=== PATIENT | male | born 1995 | race American Indian/Alaskan Native ===

== ENCOUNTER 2017-10-08 21:20 | Emergency (ER) | payer OTHER ==
[~2017-10-08] VITALS: Ht 170.2 cm; Wt 74.8 kg
[~2017-10-08 21:20] MED LIST: SEPTRA DS TABL1 EACH PO; TRAMADOL HCL50 MG PO; TYLENOL WITH C1 EACH PO
--- NOTE | 2017-10-09 07:58 | EKG ---
[facility] [address] [facility] [place], [place] [address] Signed Sinus bradycardia Otherwise normal ECG No previous ECGs available Confirmed by LATONIA NORTON MD ([id number]) on 10/09/2017 7:57:47 AM Electronically Signed By: LATONIA NORTON MD 10/09/17 0758 PATIENT NAME: CASE,DEE Kapoor Electrocardiogram DATE OF : [birth year] PHYSICIAN: LATONIA NORTON MD REPORT #: [id number] REPORT IS CONFIDENTIAL AND NOT TO BE RELEASED WITHOUT AUTHORIZATION
== END 2017-10-08 22:53 | disposition home or self-care (01) ==
LOC: ED 21:20
DX: K21.9 Gastro-esophageal reflux disease without esophagitis (principal); R07.2 Precordial pain
CPT/HCPCS: 71045; 80053; 84484; 85025; 93005; 93010; 99284

== ENCOUNTER 2024-09-13 03:22 | Emergency (ER) | payer OTHER ==
[~2024-09-13] VITALS: Ht 170.2 cm; Wt 81.0 kg
--- OUTSIDE RECORDS SUMMARY | 2024-09-13 03:29 | XMS ---
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 Hiral has no Care Guidelines for this patient. Carrie VISIT COUNT (12 MO.) 1 DONNA Denson M.C. TOTAL 2 NOTE: Visits indicate total known visits. ED/C VISIT TRACKING (12 MO.) 09/13/2024 03:23 DONNA Jasso OR TYPE: Emergency COMPLAINT: - POSS COLLERBONE INJURY 09/03/2024 02:24 Deepak Sotelo OR TYPE: Emergency DIAGNOSES: - Other specified disorders of bone, shoulder - Painful collarbone INPATIENT VISIT TRACKING (12 MO.) No inpatient visits to display in this time frame [email or web address]
[2024-09-13] MEDS ORDERED: IBUPROFEN 800 MG TAB PO ONE (04:00)
[2024-09-13 04:02] VITALS: BP 136/87
== END 2024-09-13 04:03 | disposition home or self-care (01) ==
LOC: ED 03:22
DX: S40.012A Contusion of left shoulder, initial encounter (principal); X58.XXXA Exposure to other specified factors, initial encounter
CPT/HCPCS: 73000; 99283; A9270